=== PATIENT | female | born 1980 | race Caucasian/White ===

== ENCOUNTER 2022-08-12 02:56 | Outpatient (CLI) | payer BC, SELFPAY | END 2022-08-12 02:57 | disposition home or self-care (01) | LOC: AMB 08-15 09:17 | PROVIDERS: PCP Family Medicine; Visit Provider Internal Medicine | DX: R10.9 Unspecified abdominal pain (principal) | CPT/HCPCS: A0425; A0427 ==

== ENCOUNTER 2022-08-12 03:22 | Emergency (ER) | payer BC, SELFPAY ==
[2022-08-12 03:31] VITALS: BP 120/58; PULSE 73; RESP 18; TEMP 36.7; O2SAT 100
--- NOTE | 2022-08-12 03:48 | ED.ABDPAIN ---
HPI - Abdominal Pain General Chief Complaint: Abdominal Pain Stated Complaint: abdominal pain Time Seen by Provider: 08/12/22 03:24 History of Present Illness HPI narrative: Pt is a 41 year old woman who presents with the sudden onset of severe midabd pain. Pt got up at 0230 to let her puppy out when she developed severe midabd pain. She had one episode of vomiting. Pt is worsened with movement. No fever or chills. No change in bowel or bladder. Pt has a history of ovrian cysts. Non recently. Pt has otherwise been in good health. Was concerned that pain was from eating too many Earlene cookies. Pt did not take any medications at home. Pain is severe and sharp. No history of abd surgeries. States that she is not as her has had a vasectomy. Related Data Home Medications Medication Instructions Recorded Confirmed albuterol sulfate 2.5 mg/3 mL mg 08/12/22 (0.083 %) solution for nebulization albuterol sulfate 90 mcg/actuation inhalation 08/12/22 aerosol inhaler benzonatate 200 mg capsule mg PO 08/12/22 buspirone 10 mg tablet mg 08/12/22 famotidine 20 mg tablet mg 08/12/22 fluticasone 250 mcg-salmeterol 50 inhalation 08/12/22 mcg/dose blistr powdr for inhalation (Advair Diskus) lamotrigine 150 mg tablet mg 08/12/22 montelukast 10 mg tablet mg 08/12/22 Allergies Allergy/AdvReac Type Severity Reaction Status Date / Time NKDA Allergy Uncoded 08/12/22 03:37 Review of Systems Status of ROS Reports: 10 or more systems reviewed and unremarkable except as noted in History and below [facility] Medical History (Updated 08/12/22 @ 06:06 by Tod Rodriguez MD) Asthma Bipolar 1 disorder Ovarian cyst Social History Smoking Status: Never smoker Do you use any of these nicotine containing products: None Second hand tobacco smoke exposure: No How often do you have a drink containing alcohol: monthly or less How many standard drinks containing alcohol do you have on a typical day: 1 or 2 How often do you have six or more drinks on one occasion: Never AUDIT-C Alcohol total score: 1 Non-prescribed substance use: denies use service: No Exam Narrative: Exam Narrative: EXAM GENERAL: Patient appears comfortable and well. EYES: No scleral icterus. ENT: Tympanic membranes and oropharynx normal. THYROID: no thyroid nodules or thyromegaly. LYMPH: No supraclavicular or cervical lymphadenopathy. SKIN: Visible skin seen during exam normal or with benign process only. EXT: No dependent lower extremity pedal edema. HEART: Regular rate and rhythm with no murmurs, rubs, or gallops. LUNGS: Clear to auscultation bilaterally with no crackles or wheezes. ABD: Tender to palpation no rebound masses or guarding. PSYCH: Good eye contact, speech is not pressured. Const: Vital Signs, click to edit/add: Vital Signs - 24 hr 08/12/22 03:31 08/12/22 04:18 08/12/22 05:09 Temperature 98.0 F Pulse Rate [Right Pulse Oximeter] 73 73 69 Respiratory Rate 18 16 14 Blood Pressure [Ri ght Upper Arm] 120/58 L 123/69 121/66 Pulse Oximetry 100 100 99 Oxygen Delivery Me thod Room Air Room Air Room Air Course Course Hospital Course: Pt seen and examined. CT of abd and pelvis, CBC, CMP, Amylase UA ordered Vital Signs Vital signs: Initial Vital Signs Temperature 98.0 F 08/12/22 03:31 Temperature Source Temporal Artery Scan 08/12/22 03:31 Pulse Rate 73 08/12/22 03:31 Pulse Rhythm 08/12/22 03:31 Respiratory Rate 18 08/12/22 03:31 Blood Pressure 120/58 L 08/12/22 03:31 Blood Pressure Mean 78 08/12/22 03:31 Blood Pressure Position Supine 08/12/22 03:31 Pulse Oximetry 100 08/12/22 03:31 Oxygen Delivery Method 08/12/22 03:31 Vital Signs Temperature 98.0 F 08/12/22 03:31 Pulse Rate 73 08/12/22 03:31 Respiratory Rate 18 08/12/22 03:31 Blood Pressure 120/58 L 08/12/22 03:31 Pulse Oximetry 100 08/12/22 03:31 Oxygen Delivery Method 08/12/22 03:31 Temperature 98.0 F 08/12/22 03:31 Pulse Rate 69 08/12/22 05:09 Respiratory Rate 14 08/12/22 05:09 Blood Pressure 121/66 08/12/22 05:09 Pulse Oximetry 99 08/12/22 05:09 Oxygen Delivery Method 08/12/22 05:09 MDM - Abdominal Pain MDM Narrative Medical decision making narrative: Pt presents with sudden onset of severe abd pain. Pt exam and vital signs are very normal. Labs are reviewed by me and are unremarkable. CT of the abd and pelvis shows a small ruptured ovarian cyst with a small amount of free fluid in the pelvis. Pt feeling better after toradol, zofran and normal saline. Pt declines further pain medication and will be discharged to home to take Ibuprofen 600 mg three times per day as needed. Follow up with Primary Care as needed. Differential Diagnosis Differential diagnosis: Likely abdominal pain, acute appendicitis, calculus of kidney, constipation, diverticulitis, endometriosis, gastroenteritis, pancreatitis and small bowel obstruction Medical Records Attestation: I reviewed the patient's medical records. Lab Data Labs: Lab Results 08/12/22 08/12/22 08/12/22 Range/Units 04:10 04:10 04:45 WBC 8.53 (4.50-11.00) K/uL RBC 3.79 L (4.00-5.20) m/uL Hgb 12.2 (12.0-16.0) gm/dL Hct 36.1 (33.0-51.0) % MCV 95 (80-100) fL MCH 32 (26-34) pg MCHC 34 (32-36) gm/dL RDW Coeff of Orin 12.2 (11.5-15.5) % Plt Count 221 (140-440) K/uL Neut % (Auto) 54.6 (42.0-72.0) % Lymph % (Auto) 31.4 (20-44) % Broome % (Auto) 11.8 H (0.0-11.0) % Eos % (Auto) 1.3 (0.0-7.0) % Baso % (Auto) 0.8 (0.0-3.0) % Neut # (Auto) 4.65 (1.7-7.0) K/uL Lymph # (Auto) 2.68 (0.90-2.90) K/uL Broome # (Auto) 1.00 H (0.00-0.90) K/UL Eos # (Auto) 0.11 (0.00-0.50) K/uL Baso # (Auto) 0.07 (0.00-0.30) K/uL Sodium 138 (135-149) mmol/L Potassium 4.3 (3.6-5.1) mmol/L Chloride 107 (96-114) mmol/L Carbon Dioxide 26 (20-32) mmol/L BUN 11 (5-24) mg/dL Creatinine 0.8 (0.5-1.5) mg/dL Estimated GFR 94 ml/min Glucose 104 (60-115) mg/dL Calcium 8.8 (8.4-10.6) mg/dL Total Bilirubin 0.3 (0.1-1.5) mg/dL AST 18 (12-35) U/L ALT 18 (4-35) U/L Alkaline Phosphatase 41 (40-150) U/L Total Protein 6.3 (6.0-8.3) g/dL Albumin 3.9 (3.3-5.0) g/dL Amylase 86 (18-89) U/L Urine Color Yellow (Yellow) Urine Appearance Clear (Clear) Urine pH 6.0 (5.0-8.5) Ur Specific Foll[place] 1.025 (1.000-1.030) Urine Protein Negative (Negative) Urine Glucose (UA) Negative (Negative) Urine Ketones Negative (Negative) Urine Blood Negative (Negative) Urine Nitrite Negative (Negative) Urine Bilirubin Negative (Negative) Urine Urobilinogen 0.2 (0.2-1.0) Ur Leukocyte Esterase Negative (Negative) Discharge Plan Discharge Clinical Impression: Ovarian cyst Patient Disposition: Home, Self-Care Condition: Stable Instructions: Ovarian Cyst (ED) Additional Instructions: Follow up with Primary Care Activity Level: No Restrictions Discharge Diet: Regular Prescriptions: No Action lamotrigine 150 mg tablet fluticasone propion-salmeterol [Advair Diskus] 250-50 mcg/dose blister with device INHALATION Label Comments: INHALE 1 PUFF BY MOUTH IN THE MORNING AND IN THE EVENING albuterol sulfate 2.5 mg /3 mL (0.083 %) solution for nebulization Label Comments: USE 1 VIAL VIA NEBULIZER EVERY 6 HOURS NEEDED benzonatate 200 mg capsule PO famotidine 20 mg tablet buspirone 10 mg tablet montelukast 10 mg tablet albuterol sulfate 90 mcg/actuation HFA aerosol inhaler INHALATION Label Comments: INHALE 2 PUFFS BY MOUTH EVERY 4 HOURS NEEDED Follow Up/Referrals: Cristine Louis MD [Primary Care Provider] - Stand Alone Forms: [employer] Info Instructions
[2022-08-12] MEDS: 0.9 % SODIUM CHLORIDE 1000 ml 1,000 ML IV (04:06)
[2022-08-12] MEDS: ONDANSETRON 2 MG/ML inj 4 MG IVP (04:07)
[2022-08-12] MEDS: KETOROLAC 30 MG/ML inj IVP (04:08)
[2022-08-12 04:15] LABS: Basophils Absolute Auto 0.07 K/uL (0.00-0.30); Basophils Percent Auto 0.8 % (0.0-3.0); Eosinophils Absolute Auto 0.11 K/uL (0.00-0.50); Eosinophils Percent Auto 1.3 % (0.0-7.0); Hematocrit 36.1 % (33.0-51.0); Hemoglobin* 12.2 gm/dL (12.0-16.0); Immature Granulocytes Abs Auto 0.01 K/uL (0.00-0.30); Immature Granulocytes Pct Auto 0.1 %; Lymphocytes Absolute Auto 2.68 K/uL (0.90-2.90); Lymphocytes Percent Auto 31.4 % (20-44); Mean Corpuscular HGB Conc 34 gm/dL (32-36); Mean Corpuscular Hemoglobin 32 pg (26-34); Mean Corpuscular Volume 95 fL (80-100); Monocytes Percent Auto 11.8 % (0.0-11.0); Neutrophils Absolute Auto 4.65 K/uL (1.7-7.0); Neutrophils Percent Auto 54.6 % (42.0-72.0); Platelet Count* 221 K/uL (140-440); RDW Coefficient of Variation % 12.2 % (11.5-15.5); Red Blood Count 3.79 m/uL (4.00-5.20); White Blood Count* 8.53 K/uL (4.50-11.00)
[2022-08-12 04:18] VITALS: BP 123/69; PULSE 73; RESP 16; O2SAT 100
[2022-08-12 04:22] LABS: Slide Review Reflex No
[2022-08-12 04:28] LABS: Albumin* 3.9 g/dL (3.3-5.0); Chloride* 107 mmol/L (96-114); Potassium* 4.3 mmol/L (3.6-5.1); Sodium* 138 mmol/L (135-149)
[2022-08-12 04:31] LABS: Alanine Aminotransferase* 18 U/L (4-35); Alkaline Phosphatase* 41 U/L (40-150); Amylase* 86 U/L (18-89); Aspartate Amino Transferase* 18 U/L (12-35); Bilirubin Total* 0.3 mg/dL (0.1-1.5); Blood Urea Nitrogen* 11 mg/dL (5-24); Calcium* 8.8 mg/dL (8.4-10.6); Carbon Dioxide* 26 mmol/L (20-32); Creatinine* 0.8 mg/dL (0.5-1.5); Estimated Glomerular Filt Rate 94 ml/min; Glucose* 104 mg/dL (60-115); Total Protein* 6.3 g/dL (6.0-8.3)
--- NOTE | 2022-08-12 04:46 | ED.NURSE ---
Patient's updated with patient's permission. Patient states her pain is improving.
--- NOTE | 2022-08-12 04:53 | CRLHL7_ITS ---
For Patients: As a result of the Century Cures Act, medical imaging exams and procedure reports are released immediately into your electronic medical record. You may view this report before your referring provider. If you have questions, please contact your health care provider. INDICATION: Abdominal pain. TECHNIQUE: CT abdomen and pelvis acquired with 83 cc Isovue 370 IV contrast. COMPARISON: MRI abdomen January 08, 2016. FINDINGS: Lower chest: Unremarkable. Liver: Unremarkable. Normal in size and attenuation. No suspicious masses. Gallbladder and bile ducts: Unremarkable. No stones or inflammation. No biliary dilatation. Pancreas: Unremarkable. No mass or inflammation. Spleen: Unremarkable. Normal in size. No masses. Adrenal glands: Unremarkable. No nodules. Kidneys: Unremarkable. No suspicious masses, stones, or hydronephrosis. GI tract: Unremarkable. Normal in caliber. No sign of mass or inflammation. Normal appendix. Vasculature: Abdominal aorta is normal in caliber. Mesenteric arteries are patent. Lymph nodes: No lymphadenopathy. Peritoneum/Abdominal Wall: Unremarkable. No sign of mass or infiltration. No free air or significant free fluid. Pelvis: Small collapsed follicle or cyst in the left ovary with a small amount of adjacent free fluid. Pelvic structures otherwise unremarkable. Bones: Unremarkable for age. IMPRESSION: Small ruptured left ovarian follicle or cyst with a small amount of adjacent free fluid. Remainder of the exam is unremarkable. No other finding to explain abdominal pain. Please note that all CT scans at this facility use dose modulation, iterative reconstruction, and/or weight-based dosing when appropriate to reduce radiation dose to as low as reasonably achievable. Dictated by Ilan Lockhart MD @ 08/12/2022 5:50:21 AM (Electronically Signed)
[2022-08-12 05:04] LABS: Appearance Urine Clear (Clear); Bilirubin Urine Negative (Negative); Blood Urine Negative (Negative); Color Urine Yellow (Yellow); Glucose Urine Negative (Negative); Ketones Urine Negative (Negative); Leukocyte Esterase Urine Negative (Negative); Nitrite Urine Negative (Negative); Protein Urine Negative (Negative); Specific Gravity Urine 1.025 (1.000-1.030); Urobilinogen Urine 0.2 (0.2-1.0)
[2022-08-12 05:09] VITALS: BP 121/66; PULSE 69; RESP 14; O2SAT 99
[2022-08-12 06:11] VITALS: BP 130/66; PULSE 76; RESP 16; O2SAT 97
== END 2022-08-12 06:18 | disposition home or self-care (01) ==
PROVIDERS: Emergency Provider Internal Medicine; PCP Family Medicine
DX: N83.202 Unspecified ovarian cyst, left side (principal)
CPT/HCPCS: 36415; 74177; 80053; 81003; 82150; 83605; 85025; 96374; 96375; 99284; J1885; J2405; J7030; Q9967

== ENCOUNTER 2022-11-23 19:57 | Emergency (ER) | payer BC, SELFPAY ==
[2022-11-23 20:08] VITALS: BP 148/87; PULSE 72; RESP 16; TEMP 36.6; O2SAT 99; BMI 25.8
--- NOTE | 2022-11-23 20:33 | CRLHL7_ITS ---
For Patients: As a result of the Century Cures Act, medical imaging exams and procedure reports are released immediately into your electronic medical record. You may view this report before your referring provider. If you have questions, please contact your health care provider. INDICATION: Epigastric, right upper quadrant abdominal pain TECHNIQUE: Ultrasound abdomen limited. Sonographic images of the right upper quadrant were obtained using ames-scale and color Doppler images. COMPARISON: None FINDINGS: Liver: The liver parenchyma is normal in echotexture. Gallbladder: No gallstones or sludge seen in the lumen. The gallbladder wall is normal in appearance. No pericholecystic fluid is present. No sonographic Alvarez???s sign is present. Common bile duct: 5 mm. No intrahepatic biliary ductal dilatation seen. Pancreas: The visualized portions of the pancreatic head and body are normal in appearance. Right Kidney: 11.8 cm. No hydronephrosis or ureterectasis is seen. Vascular: The visualized abdominal aorta and IVC are unremarkable. The visualized portal vein is patent with normal anterograde flow. IMPRESSION: 1. The right upper quadrant is unremarkable in appearance. Dictated by Delfino Pinzon MD @ 11/23/2022 11:24:13 PM Dictated by: Delfino Pinzon MD @ 11/23/2022 23:24:18 (Electronically Signed)
--- OUTSIDE RECORDS SUMMARY | 2022-11-23 20:42 | XMS_ITS | Continuity of Care Document ---
Author Name Unknown Organization [facility] Address [address] [address] [place] [address] Phone Care Team Providers Care Medical Billing Instructor Name Role Phone Link Loy AMBROCIO Unavailable Unavailable Advance Directives Directive Yes / No Effective Date File Name No Information Encounters Encounter Description Practice Location Reason(s) For Visit Diagnoses Date Provider Providers Copied on Encounter [facility], [address] [address], [place], [place], [id number], [place] tel:[phone] [facility] No Information Link MD Granado. [address], [facility] [address], [place], [place], [id number] , [place]. tel:[phone] Referring Provider: José Miguel Neal MD [address] [place], [address]. tel:[phone] Family History Family Member Type Diagnosis Age At Onset No Information Payers Payer name Insurance type Covered alliance party ID Authoriza tion(s) No Information Social History Type Description Quantity Date Captured Comments Sex Female Smoking Status No Information Chief Complaint And Reason For Visit No Information Reason For Referral Reason For Referral No Information Plan Of Treatment Date Type Action Status No Information History Of Present Illness Encounter Date Complaint History Of Prese nt Illness No Information Functional Status Date Functional Assessmen t No Information Instructions Date Instruction Additional Infor mation No Information Assessments Type Assessment Date No Information Patient Care Teams Name Effective Dates (start - stop) Status Members No Information
--- OUTSIDE RECORDS SUMMARY | 2022-11-23 20:43 | XMS_ITS | Continuity of Care Document ---
Author Name Unknown Organization [facility] Address [address] [address] [place] [address] Phone Care Team Providers Care Rooter Operator Name Role Phone Link Loy AMBROCIO Unavailable Unavailable Advance Directives Directive Yes / No Effective Date File Name No Information Encounters Encounter Description Practice Location Reason(s) For Visit Diagnoses Date Provider Providers Copied on Encounter [facility], [address] [address], [place], [place], [id number], [place] tel:[phone] [facility] [place] No Information Link MD Granado. [address] [facility], [facility] [address], [place], [place], [id number] , [place]. tel:[phone] Referring Provider: José Miguel Neal MD [address] [place], [address]. tel:[phone] Family History Family Member Type Diagnosis Age At Onset No Information Payers Payer name Insurance type Covered green party ID Authoriza tion(s) No Information Social [...]
[2022-11-23] MEDS: ACETAMINOPHEN 500 MG TABLET 1000 MG PO (21:00)
[2022-11-23] MEDS: ONDANSETRON 2 MG/ML inj 4 MG IVP (21:00)
--- NOTE | 2022-11-23 21:01 | ED.NURSE ---
Patient declined ordered dose of Pepcid stating she already takes one daily.
[2022-11-23 21:02] LABS: Basophils Absolute Auto 0.04 K/uL (0.00-0.30); Basophils Percent Auto 0.6 % (0.0-3.0); Eosinophils Percent Auto 1.4 % (0.0-7.0); Hematocrit 37.8 % (33.0-51.0); Immature Granulocytes Abs Auto 0.02 K/uL (0.00-0.30); Immature Granulocytes Pct Auto 0.3 %; Lymphocytes Absolute Auto 2.93 K/uL (0.90-2.90); Lymphocytes Percent Auto 41.4 % (20-44); Mean Corpuscular HGB Conc 34 gm/dL (32-36); Mean Corpuscular Hemoglobin 33 pg (26-34); Mean Corpuscular Volume 95 fL (80-100); Monocytes Percent Auto 11.6 % (0.0-11.0); Neutrophils Absolute Auto 3.17 K/uL (1.7-7.0); Neutrophils Percent Auto 44.7 % (42.0-72.0); Platelet Count* 241 K/uL (140-440); RDW Coefficient of Variation % 12.2 % (11.5-15.5); White Blood Count* 7.08 K/uL (4.50-11.00)
[2022-11-23 21:10] LABS: Slide Review Reflex No
[2022-11-23 21:15] LABS: Albumin* 4.5 g/dL (3.3-5.0); Chloride* 103 mmol/L (96-114); Sodium* 135 mmol/L (135-149)
[2022-11-23 21:16] LABS: Potassium* 3.8 mmol/L (3.6-5.1)
[2022-11-23 21:18] LABS: Bilirubin Total* 0.3 mg/dL (0.1-1.5); Creatinine* 0.9 mg/dL (0.5-1.5); Est. Creatinine Clearance* 84.23; Estimated Glomerular Filt Rate 81 ml/min
[2022-11-23 21:19] LABS: Alanine Aminotransferase* 17 U/L (4-35); Alkaline Phosphatase* 44 U/L (40-150); Aspartate Amino Transferase* 18 U/L (12-35); Blood Urea Nitrogen* 13 mg/dL (5-24); Calcium* 9.4 mg/dL (8.4-10.6); Carbon Dioxide* 26 mmol/L (20-32); Glucose* 94 mg/dL (60-115); Lipase* 162 U/L (23-300); Total Protein* 7.6 g/dL (6.0-8.3)
[2022-11-23 21:22] LABS: C Reactive Protein* 0.6 mg/dL (0.5-1.0)
[2022-11-23 21:24] LABS: HCG Qualitative* Negative (Negative)
--- NOTE | 2022-11-23 22:07 | ED_ITS ---
HPI - General Adult General Chief complaint: Abdominal Pain Stated complaint: Pancreatitis Time Seen by Provider: 11/23/22 20:08 Source: patient Mode of arrival: ambulatory Limitations: no limitations History of Present Illness HPI narrative: 42-year-old female with a history of bipolar to presents with epigastric abdominal pain radiating up into the chest and the back intermittently in the spasm like form for the past 5 days, worsening this evening. Does seem worse after meals. Has not noted any particular association with any particular foods. No fever. Mild nausea is present but no vomiting. Stools have been looser for a few days as well. She tells me several times in my initial interview that her mother had a history of pancreatic cancer and she is worried about this. Her family history also reveals that her father had gallbladder disease and had his gallbladder removed. She has never had any history of similar pain. She initially told me that she does not have a history of GERD or any antacid use. There is no syncope, dizziness or palpitations. There is no blood in her stools. No prior endoscopy. No prior workup for similar symptoms. No trauma or injury. Has not tried any Tylenol or ibuprofen or other interventions to help with her symptoms. Past medical history notable for bipolar type 2, asthma and allergies. She reports that her home medications are Singulair Zyrtec Advair albuterol and lamotrigine and BuSpar. She reports no chance of . Denies any prior GI surgeries. Denies colonoscopy. Family history is notable above for pancreatic cancer and gallbladder disease. ROS is notable for the chest, GI and generalized symptoms as above, otherwise denies times 12 systems. Related Data Home Medications Medication Instructions Recorded Confirmed albuterol sulfate 2.5 mg/3 mL mg 08/12/22 09/14/22 (0.083 %) solution for nebulization albuterol sulfate 90 mcg/actuation inhalation 08/12/22 09/14/22 aerosol inhaler benzonatate 200 mg capsule mg PO 08/12/22 09/14/22 buspirone 10 mg tablet mg 08/12/22 09/14/22 famotidine 20 mg tablet mg 08/12/22 09/14/22 fluticasone 250 mcg-salmeterol 50 inhalation 08/12/22 09/14/22 mcg/dose blistr powdr for inhalation (Advair Diskus) lamotrigine 150 mg tablet mg 08/12/22 09/14/22 montelukast 10 mg tablet mg 08/12/22 09/14/22 Allergies Allergy/AdvReac Type Severity Reaction Status Date / Time NKDA Allergy Uncoded 09/14/22 12:03 [facility] Medical History Abdominal pain ?R10.9 - Unspecified abdominal pain (ICD-10) Asthma ?J45.909 - Unspecified asthma, uncomplicated (ICD-10) Bipolar 2 disorder ?F31.81 - Bipolar II disorder (ICD-10) Chronic GERD ?K21.9 - Gastro-esophageal reflux disease without esophagitis (ICD-10) Hypovitaminosis D ?E55.9 - Vitamin D deficiency, unspecified (ICD-10) IBS (irritable bowel syndrome) ?K58.9 - Irritable bowel syndrome without diarrhea (ICD-10) Normal esophagogastroduodenoscopy (EGD) ?Z01.89 - Encounter for other specified special examinations (ICD-10) Ovarian cyst ?N83.209 - Unspecified ovarian cyst, unspecified side (ICD-10) Social History Smoking Status: Never smoker Do you use any of these nicotine containing products: None Second hand tobacco smoke exposure: No How often do you have a drink containing alcohol: monthly or less How many standard drinks containing alcohol do you have on a typical day: 1 or 2 How often do you have six or more drinks on one occasion: Never AUDIT-C Alcohol total score: 1 Non-prescribed substance use: denies use service: No Exam Const: Vital Signs, click to edit/add: Vital Signs - 24 hr 11/23/22 20:08 Temperature 98 F Pulse Rate [Pulse Oximeter] 72 Respiratory Rate 16 Blood Pressure [Le ft Upper Arm] 148/87 H Pulse Oximetry 99 Oxygen Delivery Me thod Room Air Documenting provider has reviewed patient's vital signs: yes General appearance: well kempt Other: Anxious with fair insight. Cooperative. HENMT: Common normals: normocephalic Head and scalp: normocephalic Face and sinus: normal facial exam Mouth: oral and palatal mucosa normal Throat: posterior oropharynx normal Eye: Common normals: conjunctivae normal General eye: normal appearance of both eyes Conjunctiva: conjunctiva(e) normal Neck & C-Spine: Common normals: full ROM and no lymphadenopathy Resp: Common normals: normal respiratory effort, no use of accessory muscles and clear to auscultation bilaterally Effort & inspection: able to speak in complete sentences Auscultation: clear to auscultation bilaterally Cardio: Common normals: regular rate, regular rhythm, S1 normal heart sound, S2 normal heart sound and no murmurs Rate: regular rate Rhythm: regular rhythm Heart sounds: S1 normal and S2 normal GI: Other: Abdomen nondistended and soft. Bowel sounds are normoactive in all 4 quadrants. She was mildly tender to the right upper quadrant and epigastric region but no rebound tenderness or guarding. Liver and spleen are not enlarged, no mass. No hernia : Common normals: no CVA tenderness Bladder/kidney exam: no CVA tenderness Back & Pelvis: Common normals: no CVA tenderness Extremity: Common normals: normal to inspection, full ROM and normal capillary refill Neuro: Speech: speech normal Gait (neuro): normal gait Motor exam: no tremor noted and no movement abnormalities noted Psych: Appearance: well kempt Activity/motor behavior: appropriate eye contact Mood and affect: anxious Insight: fair Judgement: fair Skin: Common normals: no rashes or lesions noted General skin exam: no bushra hes or lesions noted Course Vital Signs Vital signs: Initial Vital Signs Temperature 98 F 11/23/22 20:08 Temperature Source Temporal Artery Scan 11/23/22 20:08 Pulse Rate 72 11/23/22 20:08 Pulse Rhythm Regular 11/23/22 20:08 Respiratory Rate 16 11/23/22 20:08 Blood Pressure 148/87 H 11/23/22 20:08 Blood Pressure Mean 107 11/23/22 20:08 Pulse Oximetry 99 11/23/22 20:08 Oxygen Delivery Method Room Air 11/23/22 20:08 Vital Signs Temperature 98 F 11/23/22 20:08 Pulse Rate 72 11/23/22 20:08 Respiratory Rate 16 11/23/22 20:08 Blood Pressure 148/87 H 11/23/22 20:08 Pulse Oximetry 99 11/23/22 20:08 Oxygen Delivery Method Room Air 11/23/22 20:08 Temperature 98 F 11/23/22 20:08 Pulse Rate 72 11/23/22 20:08 Respiratory Rate 16 11/23/22 20:08 Blood Pressure 148/87 H 11/23/22 20:08 Pulse Oximetry 99 11/23/22 20:08 Oxygen Delivery Method Room Air 11/23/22 20:08 Medical Decision Making MDM Narrative Medical decision making narrative: Differential diagnosis including pancreatitis, gallbladder disease of multiple etiologies, bowel obstruction, cardiac disease, musculoskeletal etiology, enteritis. Is quite clear that she is worried about pancreatitis and pancreatic cancer as she repeatedly explains to me that her symptoms are consistent with what her mother wants experiencing. I elect to do labs. I offer pain medication. Together, we discussed that she wants to be able to drive herself home and therefore we will avoid narcotic medicine. Instead I order Zofran and famotidine for her nausea. She was understanding of my rationale for this. Ultrasound of right upper quadrant as well. Update: She does report moderate improvement of her symptoms after the famotidine and Zofran. Normal labs and ultrasound reviewed with patient. She verbalized understanding and agreement. I discussed with her that this still certainly could be GERD and or biliary dyskinesia. I would like for her to start [id number] omeprazole once daily for the next 2 weeks and follow up with her primary care provider in 10-14 days to report progress. She had initially told me she did not take any acid medicines and then told me at our summary that she was taking famotidine twice daily for her allergies, therefore I chose the omeprazole. She had originally denied any prior significant GI workup but I can see that she has had several CTs including 1 within the last 6 months and has had an endoscopy in the past as well. Would recommend that her primary care provider order a HIDA scan if she continues to be symptomatic. Encouraged to follow a low-fat alcohol free diet in the interim. Alarm symptoms reviewed as indications to come back to ED Lab Data Lab results reviewed: Yes I reviewed the patient's lab results Lab results narrative: All perfectly reassuring Labs: Lab Results 11/23/22 11/23/22 Range/Units 20:45 20:48 WBC 7.08 (4.50-11.00) K/uL RBC 4.00 (4.00-5.20) m/uL Hgb 13.0 (12.0-16.0) gm/dL Hct 37.8 (33.0-51.0) % MCV 95 (80-100) fL MCH 33 (26-34) pg MCHC 34 (32-36) gm/dL RDW Coeff of Orin 12.2 (11.5-15.5) % Plt Count 241 (140-440) K/uL Neut % (Auto) 44.7 (42.0-72.0) % Lymph % (Auto) 41.4 (20-44) % [place] % (Auto) 11.6 H (0.0-11.0) % Eos % (Auto) 1.4 (0.0-7.0) % Baso % (Auto) 0.6 (0.0-3.0) % Neut # (Auto) 3.17 (1.7-7.0) K/uL Lymph # (Auto) 2.93 H (0.90-2.90) K/uL [place] # (Auto) 0.80 (0.00-0.90) K/UL Eos # (Auto) 0.10 (0.00-0.50) K/uL Baso # (Auto) 0.04 (0.00-0.30) K/uL Sodium 135 (135-149) mmol/L Potassium 3.8 (3.6-5.1) mmol/L Chloride 103 (96-114) mmol/L Carbon Dioxide 26 (20-32) mmol/L BUN 13 (5-24) mg/dL Creatinine 0.9 (0.5-1.5) mg/dL Estimated Creat Clear 84.23 Estimated GFR 81 ml/min Glucose 94 (60-115) mg/dL Calcium 9.4 (8.4-10.6) mg/dL Total Bilirubin 0.3 (0.1-1.5) mg/dL AST 18 (12-35) U/L ALT 17 (4-35) U/L Alkaline Phosphatase 44 (40-150) U/L C-Reactive Protein 0.6 (0.5-1.0) mg/dL Total Protein 7.6 (6.0-8.3) g/dL Albumin 4.5 (3.3-5.0) g/dL Lipase 162 (23-300) U/L HCG, Qual Negative (Negative) POC Troponin I 0.00 L (0.01-0.04) ng/ml Imaging Data Abdominal ultrasound: Attestation: I have reviewed the pertinent imaging results. My impression: No obstruction, no ductal enlargement, no stones, no wall thickening, no abnormalities Discharge Plan Discharge Clinical Impression: Acute epigastric pain Patient Disposition: Home, Self-Care Condition: Improved Instructions: Epigastric Pain (ED) Additional Instructions: As we discussed, I suspect your pain is either from reflux or biliary dyskinesia which is the ?malfunctioning gallbladder? that we discussed. I am glad that your pain got a little better with the antacid and nausea medication. It is safe to continue use of Tylenol and ibuprofen in the interim. These spells are very common and as long as there are no signs of infection or obstruction, they are not particularly dangerous. As we discussed, your ultrasound and labs look perfect today. If you continue to have spells, I would recommend that you make a follow-up appointment with your primary care doctor to discuss getting a HIDA scan. This is the test that can look for a malfunction in gallbladder. If this is not helpful, I would then recommend an endoscopy. In the interim, I would like to start you on omeprazole, a stomach acid medicine. If after 2 weeks of daily use you are not finding benefit, this helps reinforce that it is not related to reflux. Please make a follow-up with her primary care doctor in 10- 14 days to discuss these findings and report your progress. And alcohol free, low-fat diet is often helpful in reducing the number of spells. Activity Level: No Restrictions Discharge Diet: Low Fat/Low Cholesterol Prescriptions: No Action lamotrigine 150 mg tablet fluticasone propion-salmeterol [Advair Diskus] 250-50 mcg/dose blister with device INHALATION Patient Comments: INHALE 1 PUFF BY MOUTH IN THE MORNING AND IN THE EVENING albuterol sulfate 2.5 mg /3 mL (0.083 %) solution for nebulization Patient Comments: USE 1 VIAL VIA NEBULIZER EVERY 6 HOURS NEEDED benzonatate 200 mg capsule PO famotidine 20 mg tablet buspirone 10 mg tablet montelukast 10 mg tablet albuterol sulfate 90 mcg/actuation HFA aerosol inhaler INHALATION Patient Comments: INHALE 2 PUFFS BY MOUTH EVERY 4 HOURS NEEDED Follow Up/Referrals: Cristine Louis MD [Primary Care Provider] - Stand Alone Forms: [facility] Info Instructions
== END 2022-11-23 21:55 | disposition home or self-care (01) ==
PROVIDERS: Emergency Provider Family Medicine; PCP Family Medicine
DX: R10.13 Epigastric pain (principal)
CPT/HCPCS: 36415; 76705; 80053; 83690; 84484; 84703; 85025; 86140; 93005; 96374; 99283; 99284; A9270; J2405

== ENCOUNTER 2023-09-01 23:29 | Emergency (ER) | payer BC, SELFPAY ==
[2023-09-01 23:32] VITALS: BP 167/100; PULSE 76; RESP 16; TEMP 36.9; O2SAT 98; BMI 25.8
--- NOTE | 2023-09-02 00:29 | ED_ITS ---
HPI - General Adult General Chief complaint: Head Injury/Pain Stated complaint: Possible Concussion-Head injury Time Seen by Provider: 09/02/23 00:01 Source: patient Mode of arrival: ambulatory Limitations: no limitations History of Present Illness HPI narrative: 42-year-old female presents the emergency department for evaluation of head injury to the back of her head, 15 hours prior to presentation. She reports that she hit the back of her head on the lift gate of her car. It came down on the back of her head. They do have a safety mechanism in place for they do not come down with extensive force. It did not knock her to the ground, cause loss of consciousness or any initial neurological changes. She reports that through the day she had been able to work on normally, ate lunch with no difficulty. S he started getting very fatigued when she came home from work, more so than usual. She ate dinner but felt a little nauseated and then started having headache this evening in the occipital area radiating down the neck which is accompanied by some photophobia but no vision changes. There are no focal neurological changes, no seizure, no loss of consciousness, no vomiting. She tried taking 600 mg of ibuprofen 30 minutes prior to coming to the ED with no significant improvement in her symptoms. She reports that she had a similar mild head injury about 2 months ago did not seek medical care. No history of prior intracranial hemorrhage, intracranial surgeries. She reports that she has had a couple of migraines in her 40s but has no ongoing headache syndromes. No history of seizure disorder. Does take mood stabilizers for her bipolar 2 disorder but this has not recently changed. Describes the headache is achy in nature, no radiation. Past medical history notable for bipolar type 2, asthma and allergies. She reports that her medications are accurate as listed in our records. Nonsmoker, allergy to doxycycline. ROS is notable for the neurological and HEENT symptoms as described above, otherwise denies times 12 systems. Related Data Home Medications Medication Instructions Recorded Confirmed albuterol sulfate 2.5 mg/3 mL mg 08/12/22 07/05/23 (0.083 %) solution for nebulization albuterol sulfate 90 mcg/actuation inhalation 08/12/22 07/05/23 aerosol inhaler benzonatate 200 mg capsule mg PO 08/12/22 07/05/23 buspirone 10 mg tablet mg 08/12/22 07/05/23 famotidine 20 mg tablet mg 08/12/22 07/05/23 fluticasone 250 mcg-salmeterol 50 inhalation 08/12/22 07/05/23 mcg/dose blistr powdr for inhalation (Advair Diskus) lamotrigine 150 mg tablet mg 08/12/22 07/05/23 montelukast 10 mg tablet mg 08/12/22 07/05/23 cholecalciferol (vitamin D3) 25 25 mcg PO QDAY 07/05/23 07/05/23 mcg (1,000 unit) capsule iron, carbonyl 18 mg iron chewable 18 mg PO ONCE 07/05/23 07/05/23 tablet (Ferretts Carbonyl Iron) omeprazole magnesium 20 mg 20 mg PO QDAY 07/05/23 07/05/23 capsule,delayed release (Acid Electronics Test Engineer (omeprazole)) Previous Rx's Medication Instructions Recorded nirmatrelvir 300 mg (150 mg See Rx Instructions PO .COMPLEX 07/05/23 x2)-ritonavir 100 mg tablet,dose #30 ea pack (Paxlovid) Allergies Allergy/AdvReac Type Severity Reaction Status Date / Time doxycycline Allergy Hives Verified 07/31/23 12:29 [facility] Medical History Hemorrhagic cyst of left ovary (2019) ?N83.202 - Unspecified ovarian cyst, left side (ICD-10) Abdominal pain ?R10.9 - Unspecified abdominal pain (ICD-10) Hypovitaminosis D ?E55.9 - Vitamin D deficiency, unspecified (ICD-10) Surgical History Normal esophagogastroduodenoscopy (EGD) ?Z01.89 - Encounter for other specified special examinations (ICD-10) Family History Mother Pancreatic cancer Uncle Pancreatic cancer Social History Smoking Status: Never smoker Do you use any of these nicotine containing products: None Second hand tobacco smoke exposure: No How often do you have a drink containing alcohol: monthly or less How many standard drinks containing alcohol do you have on a typical day: 1 or 2 How often do you have six or more drinks on one occasion: Never AUDIT-C Alcohol total score: 1 Non-prescribed substance use: denies use service: No Exam Const: Vital Signs, click to edit/add: Vital Signs - 24 hr 09/01/23 23:32 Temperature 98.5 F Pulse Rate [Left P ulse Oximeter] 76 Respiratory Rate 16 Blood Pressure [Ri ght Upper Arm] 167/100 H Pulse Oximetry 98 Oxygen Delivery Me thod Room Air Documenting provider has reviewed patient's vital signs: yes Common normals: no apparent distress and alert General appearance: cooperative, comfortable and well kempt Orientation/consciousness: Yes awake Other: Shades her eyes from the light. HENMT: Common normals: normocephalic, head/scalp atraumatic, hearing grossly normal bilaterally, TM's normal bilaterally, oropharynx normal and dentition normal Head and scalp: normocephalic and atraumatic Face and sinus: normal facial exam Tympanic membrane: TM's normal bilaterally Eye: Common normals: PERRL, EOMs intact bilaterally and conjunctivae normal Conjunctiva: conjunctiva(e) normal Pupil: PERRL Other: No nystagmus Neck & C-Spine: Common normals: full ROM and no lymphadenopathy Other: No cervical spine midline tenderness, normal range of motion. Mild paraspinal muscle tenderness only. Resp: Common normals: normal respiratory effort, no use of accessory muscles and clear to auscultation bilaterally Effort & inspection: able to speak in complete sentences Auscultation: clear to auscultation bilaterally Cardio: Common normals: regular rate, regular rhythm, S1 normal heart sound, S2 normal heart sound and no murmurs Rate: regular rate Rhythm: regular rhythm Heart sounds: S1 normal and S2 normal GI: Common normals: soft to palpation Palpation: soft Extremity: Common normals: normal to inspection, normal capillary refill and no pedal edema Neuro: Common normals: CN's II-XII intact bilaterally, moves all extremities and no focal motor deficits Sensorium/orientation: awake and alert Cranial nerves: CN normal except as noted Coordination/balance: [id number] test normal, Normal rapid alternating movements of the distal upper extremity present (Neuro) and Normal rapid alternating movements of the distal lower extremity present (Neuro) Speech: speech normal Motor exam: no tremor noted and no movement abnormalities noted Coordination: [id number] test normal, rapid alternating movement UE normal and rapid alternating movement LE normal Psych: Appearance: well kempt Attitude: engaged Activity/motor behavior: appropriate eye contact Mood and affect: euthymic mood Attention/concentration: attention grossly intact Memory/cognition: memory grossly intact Insight: insight good Judgement: judgment good Skin: Common normals: no rashes or lesions noted General skin exam: no rashes or lesions noted Course Course ED Course: After exam, counseled patient that I do not recommend CT scan of the head or any blood work. Her symptoms are consistent with a mild concussion and she is not exhibiting any signs that are suspicious for intracranial hemorrhage or severe head injury at this time. I recommend Tylenol 1000 mg p.o. x1 and a muscle relaxant he is at bedtime to help with the tension headache. Reviewed typical course of healing with concussion. Counseled patient that the amount of time to heal often increases with age. Recommend rest for the next few days, no extensive activity, avoid alcohol for the next 7 days. Alarm symptoms reviewed that would warrant ED presentation. Symptom controlling [id number] medications discussed. All questions answered, she verbalizes understanding and agreement. Vital Signs Vital signs: Initial Vital Signs Temperature 98.5 F 09/01/23 23:32 Temperature Source Temporal Artery Scan 09/01/23 23:32 Pulse Rate 76 09/01/23 23:32 Pulse Rhythm Regular 09/01/23 23:32 Respiratory Rate 16 09/01/23 23:32 Blood Pressure 167/100 H 09/01/23 23:32 Blood Pressure Mean 122 H 09/01/23 23:32 Blood Pressure Position Sitting 09/01/23 23:32 Pulse Oximetry 98 09/01/23 23:32 Oxygen Delivery Method Room Air 09/01/23 23:32 Vital Signs Temperature 98.5 F 09/01/23 23:32 Pulse Rate 76 09/01/23 23:32 Respiratory Rate 16 09/01/23 23:32 Blood Pressure 167/100 H 09/01/23 23:32 Pulse Oximetry 98 09/01/23 23:32 Oxygen Delivery Method Room Air 09/01/23 23:32 Temperature 98.5 F 09/01/23 23:32 Pulse Rate 76 09/01/23 23:32 Respiratory Rate 16 09/01/23 23:32 Blood Pressure 167/100 H 09/01/23 23:32 Pulse Oximetry 98 09/01/23 23:32 Oxygen Delivery Method Room Air 09/01/23 23:32 Discharge Plan Discharge Clinical Impression: Mild concussion Patient Disposition: Home, Self-Care Condition: Stable Instructions: Concussion (ED) Additional Instructions: As we discussed, your exam today is not consistent with any signs of intracranial hemorrhage or dangerous head injury. You are exhibiting symptoms of mild concussion including some dizziness, nausea, headache, light sensitivity and muscle tension in the cervical spine area. I do not recommend head CT or o ther additional workup at this time due to the risks of additional radiation. I do not recommend any strenuous activity for the next 48 hours. Expect to feel fatigued, nauseated and have headache symptoms, especially later in the day. It is okay to use Tylenol 1000 mg every 6 hours and or ibuprofen 600 mg every 6 hours as needed for headache, muscle tension or general discomfort. Drink lots of fluids. No alcohol for the next 7 days. I prescribed Flexeril, a muscle relaxant. I recommend using this at bedtime to help with the muscle tightness and sleep. I would start with a half of a pill, if no response after 30 minutes, then take the remaining other half of the medication. It will likely cause some sleepiness, therefore I do not recommended during the day unless your headache is severe and you have exhausted your Tylenol and ibuprofen. It is okay to use melatonin and/or Tylenol p.m. if these are helpful for you also. As discussed, symptoms of more severe head injury would include neurological weakness, seizures, persistent vomiting, etc.. Come back to the emergency department with worsening or worrisome symptoms. Follow up with your primary care provider if her symptoms are not starting to improve within 7 days. Sometimes referral to occupational therapy can be helpful for persistent symptoms. Try to avoid additional head injury for at least the next 12 weeks. Activity Level: No strenuous activity Discharge Diet: Regular Prescriptions: No Action omeprazole magnesium [Acid Electronics Test Engineer (omeprazole)] 20 mg capsule,delayed release(DR/EC) 20 mg PO QDAY cholecalciferol (vitamin D3) 25 mcg (1,000 unit) capsule 25 mcg PO QDAY Ferretts Carbonyl Iron 18 mg iron tablet,chewable 18 mg PO ONCE Paxlovid 300 mg (150 mg x 2)-100 mg tablets,dose pack See Rx Instructions PO .COMPLEX Qty: 30 0RF Rx Instructions: take TWO 150 mg tablets of nirmatrelvir with ONE 100 mg tablet of ritonavir twice daily for 5 days PO lamotrigine 150 mg tablet fluticasone propion-salmeterol [Advair Diskus] 250-50 mcg/dose blister with device INHALATION Patient Comments: INHALE 1 PUFF BY MOUTH IN THE MORNING AND IN THE EVENING albuterol sulfate 2.5 mg /3 mL (0.083 %) solution for nebulization Patient Comments: USE 1 VIAL VIA NEBULIZER EVERY 6 HOURS NEEDED benzonatate 200 mg capsule PO famotidine 20 mg tablet buspirone 10 mg tablet montelukast 10 mg tablet albuterol sulfate 90 mcg/actuation HFA aerosol inhaler INHALATION Patient Comments: INHALE 2 PUFFS BY MOUTH EVERY 4 HOURS NEEDED Follow Up/Referrals: Fang Cali DO [Primary Care Provider] - Stand Alone Forms: [employer] Info Instructions
[2023-09-02] MEDS: ACETAMINOPHEN 500 MG TABLET 1000 MG PO (00:47)
[2023-09-02 00:48] VITALS: BP 148/70; PULSE 72; RESP 18; O2SAT 98
== END 2023-09-02 00:49 | disposition home or self-care (01) ==
LOC: ED 09-02 00:33
PROVIDERS: Emergency Provider Family Medicine; PCP Family Medicine
DX: S06.0X0A Concussion without loss of consciousness, initial encounter (principal); W22.8XXA Striking against or struck by other objects, initial encounter
CPT/HCPCS: 99283; A9270

== ENCOUNTER 2023-09-15 09:30 | Outpatient (RCR) | payer BC, SELFPAY | END 2024-01-13 23:59 | disposition home or self-care (01) | PROVIDERS: PCP Family Medicine; Visit Provider Family Medicine | DX: N81.4 Uterovaginal prolapse, unspecified (principal); Z51.89 Encounter for other specified aftercare | CPT/HCPCS: 97110; 97140; 97162; 97535 ==

== ENCOUNTER 2023-10-10 21:50 | Emergency (ER) | payer BC, SELFPAY ==
[2023-10-10 22:01] VITALS: BP 143/83; PULSE 82; RESP 18; TEMP 37.2; O2SAT 97; BMI 25.1
--- NOTE | 2023-10-10 22:13 | ED_ITS ---
HPI - General Adult General Date Seen: 10/10/23 Chief complaint: Laceration/Wound Stated complaint: Lac on R big Toe Time Seen by Provider: 10/10/23 22:02 Source: patient Mode of arrival: ambulatory Limitations: no limitations History of Present Illness HPI narrative: Patient is a 43-year-old woman who says that she was walking on a wood floor at home and there was an edge that was sticking up. She got a splinter into the bottom of her toe. Her pulled it out, but she says that it was still bleeding so she called the nurse line and they told her to come in for evaluation. Tetanus is up-to-date. She has no other injuries or complaints. Bleeding is controlled. Related Data Home Medications Medication Instructions Recorded Confirmed albuterol sulfate 2.5 mg/3 mL mg PRN 08/12/22 07/05/23 (0.083 %) solution for nebulization albuterol sulfate 90 mcg/actuation inhalation PRN 08/12/22 07/05/23 aerosol inhaler benzonatate 200 mg capsule mg PO PRN 08/12/22 07/05/23 buspirone 10 mg tablet mg 08/12/22 07/05/23 famotidine 20 mg tablet mg 08/12/22 07/05/23 fluticasone 250 mcg-salmeterol 50 inhalation PRN 08/12/22 07/05/23 mcg/dose blistr powdr for inhalation (Advair Diskus) lamotrigine 150 mg tablet mg 08/12/22 07/05/23 montelukast 10 mg tablet mg 08/12/22 07/05/23 cholecalciferol (vitamin D3) 25 25 mcg PO QDAY 07/05/23 10/10/23 mcg (1,000 unit) capsule iron, carbonyl 18 mg iron chewable 18 mg PO ONCE 07/05/23 10/10/23 tablet (Ferretts Carbonyl Iron) norgestrel 0.3 mg-ethinyl 1 tab PO DAILY 10/10/23 10/10/23 estradiol 30 mcg tablet (Cryselle (28)) pantoprazole 40 mg tablet,delayed 40 mg PO DAILY 10/10/23 10/10/23 release Allergies Allergy/AdvReac Type Severity Reaction Status Date / Time doxycycline Allergy Hives Verified 10/10/23 22:06 [facility] Medical History Hemorrhagic cyst of left ovary (2019) ?N83.202 - Unspecified ovarian cyst, left side (ICD-10) Abdominal pain ?R10.9 - Unspecified abdominal pain (ICD-10) Hypovitaminosis D ?E55.9 - Vitamin D deficiency, unspecified (ICD-10) Surgical History Normal esophagogastroduodenoscopy (EGD) ?Z01.89 - Encounter for other specified special examinations (ICD-10) Family History Mother Pancreatic cancer Uncle Pancreatic cancer Social History Smoking Status: Never smoker Do you use any of these nicotine containing products: None Second hand tobacco smoke exposure: No How often do you have a drink containing alcohol: monthly or less How many standard drinks containing alcohol do you have on a typical day: 1 or 2 How often do you have six or more drinks on one occasion: Never AUDIT-C Alcohol total score: 1 Non-prescribed substance use: denies use service: No Exam Narrative: Exam Narrative: Vital signs reviewed In general, alert, well-appearing woman. Extremities: Examination of the toe shows a small entrance wound for the splinter, the splinter itself is entirely removed. There was no bleeding. The wound is a couple mm in size. She has no tenderness along the track of the wound, no apparent soft tissue defects. Distal CMS is normal. Skin: Warm dry otherwise intact. Const: Vital Signs, click to edit/add: Vital Signs - 24 hr 10/10/23 22:01 Temperature 99.0 F Pulse Rate [Pulse Oximeter] 82 Respiratory Rate 18 Blood Pressure [Ri ght Upper Arm] 143/83 H Pulse Oximetry 97 Oxygen Delivery Me thod Room Air Documenting provider has reviewed patient's vital signs: yes Course Course ED Course: Discussed with her that I would not recommend closure of this small wound parti cularly given that it is related to a puncture wound. We will clean this and dress it. Discussed reasons to return such as significant increasing redness swelling or pain. Discussed that it will likely be more sore tomorrow but she gradually improved thereafter. Ibuprofen or Tylenol if needed. Vital Signs Vital signs: Initial Vital Signs Temperature 99.0 F 10/10/23 22:01 Temperature Source Temporal Artery Scan 10/10/23 22:01 Pulse Rate 82 10/10/23 22:01 Respiratory Rate 18 10/10/23 22:01 Blood Pressure 143/83 H 10/10/23 22:01 Blood Pressure Mean 103 10/10/23 22:01 Blood Pressure Position Sitting 10/10/23 22:01 Pulse Oximetry 97 10/10/23 22:01 Oxygen Delivery Method Room Air 10/10/23 22:01 Vital Signs Temperature 99.0 F 10/10/23 22:01 Pulse Rate 82 10/10/23 22:01 Respiratory Rate 18 10/10/23 22:01 Blood Pressure 143/83 H 10/10/23 22:01 Pulse Oximetry 97 10/10/23 22:01 Oxygen Delivery Method Room Air 10/10/23 22:01 Temperature 99.0 F 10/10/23 22:01 Pulse Rate 82 10/10/23 22:01 Respiratory Rate 18 10/10/23 22:01 Blood Pressure 143/83 H 10/10/23 22:01 Pulse Oximetry 97 10/10/23 22:01 Oxygen Delivery Method Room Air 10/10/23 22:01 Discharge Plan Discharge Clinical Impression: Splinter in skin Patient Disposition: Home, Self-Care Condition: Stable Additional Instructions: Keep wound clean and dry. If you have significant worsening redness, swelling or pain you should be seen again to rule out infection. Otherwise, I would recommend addressing with an ointment such as Vaseline over the next week or so while this heals. Prescriptions: No Action cholecalciferol (vitamin D3) 25 mcg (1,000 unit) capsule 25 mcg PO QDAY Ferretts Carbonyl Iron 18 mg iron tablet,chewable 18 mg PO ONCE Cryselle (28) 0.3-30 mg-mcg tablet 1 tab PO DAILY pantoprazole 40 mg tablet,delayed release (DR/EC) 40 mg PO DAILY lamotrigine 150 mg tablet fluticasone propion-salmeterol [Advair Diskus] 250-50 mcg/dose blister with device INHALATION PRN Patient Comments: INHALE 1 PUFF BY MOUTH IN THE MORNING AND IN THE EVENING albuterol sulfate 2.5 mg /3 mL (0.083 %) solution for nebulization PRN Patient Comments: USE 1 VIAL VIA NEBULIZER EVERY 6 HOURS NEEDED benzonatate 200 mg capsule PO PRN famotidine 20 mg tablet buspirone 10 mg tablet montelukast 10 mg tablet albuterol sulfate 90 mcg/actuation HFA aerosol inhaler INHALATION PRN Patient Comments: INHALE 2 PUFFS BY MOUTH EVERY 4 HOURS NEEDED Follow Up/Referrals: Fang Cali DO [Primary Care Provider] - Stand Alone Forms: [employer] Info Instructions
[2023-10-10 22:53] VITALS: BP 135/74; PULSE 79; RESP 18; TEMP 36.9; O2SAT 97
[2023-10-10 22:55] VITALS: BP 135/74; PULSE 79; RESP 18; TEMP 36.9
== END 2023-10-10 22:55 | disposition home or self-care (01) ==
LOC: ED 22:24
PROVIDERS: Emergency Provider Emergency Medicine; PCP Family Medicine
DX: S91.131A Puncture wound without foreign body of right great toe without damage to nail, initial encounter (principal)
CPT/HCPCS: 99282; 99283

== ENCOUNTER 2024-09-29 07:07 | Outpatient (CLI) | payer BC, SELFPAY | END 2024-09-29 07:08 | disposition home or self-care (01) | LOC: MRI 07:08 | PROVIDERS: PCP Family Medicine; Visit Provider Internal Medicine Gastroenterology | DX: Z80.0 Family history of malignant neoplasm of digestive organs (principal) | CPT/HCPCS: 74183; A9575 ==